=== PATIENT | female | born 1945 | race Caucasian/White ===

== ENCOUNTER 2016-12-04 13:12 | Emergency (ER) | payer MEDICARE ==
[~2016-12-04] VITALS: Ht 167.6 cm; Wt 62.0 kg
[~2016-12-04 13:12] MED LIST: ADIP37.55 PO; AUGM875T PO; BIOT7500 PO; BUPR-197 PO; CARV12.5 PO; FISHCAP; HYOS0.129 SL; LORA2TAB PO; OSPE1TAB PO; OXYB5TAB PO; OXYC1SOL5 PO; PEPC10TA PO; REST30CA PO; VITA100032 PO
[2016-12-04 13:16] VITALS: BP 122/82; PULSE 73; RESP 16; TEMP 98.8; O2SAT 96
[2016-12-04] MEDS ORDERED: RELEMIS INH (15:40)
[2016-12-04] MEDS ORDERED: PRED50 PO (15:40)
[2016-12-04] MEDS ORDERED: CARV12.5 PO (15:40)
[2016-12-04] MEDS ORDERED: AMOX875T PO (15:40)
[2016-12-04] MEDS ORDERED: VENTAER INH (15:40)
[2016-12-04] MEDS ORDERED: SODIUM CHLOR 0.9% 1000 ML INJ 1,000 ML IV ONE (15:45)
--- NOTE | 2016-12-04 16:08 | PD ---
HPI Chief Complaint: Cold / Flu Symptoms Time Seen by Provider: 15:26 Travel History International Travel<30 days: No Contact w/Intl Traveler<30days: No Traveled to known affect area: No History of Present Illness HPI This is a 71-year-old female who presents to the emergency department having had a cough, generalized weakness and shortness of breath it's been progressing over the past 3 days, moderate severity, constant, associated with decreased appetite and oral intake. 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 She went to an urgent care where she received antivirals, amoxicillin, prednisone and an inhaler. Her is concerned because she's been very lethargic and not getting out of bed. PFSH Past Medical History Cancer: No Cardiovascular Problems: No Diabetes: No Gastrointestinal Disorders: Yes (SPASM FREQUENTLY) Genitourinary: No Hepatitis: No Hiatal Hernia: No Hypertension: Yes Immune Disorder: No Musculoskeletal: Yes (R SHOULDER PAIN FROM INJURY. NECK PAIN, L ELEBOW PAIN) Neurologic: No Psychiatric: Yes Reproductive: No Respiratory: No Thyroid Disease: No Influenza Vaccination: Yes ?: Not LMP: Arielle- Past Surgical History Abdominal Surgery: Yes (COLON RESECTION, GASTRIC BYPASS 1990 WITH REVISION) AICD: No Body Medical Devices: CORNEA TRANSPLANT Eye Surgery: Yes (CORNEAL TRANSPLANT, BILATERAL CATARACT SURGERY) Genitourinary Surgery: Yes (BOTOX FOR LEAKING BLADDER, BLADDER LIFT) Gynecologic Surgery: Yes (HYSTERECTOMY) Joint Replacement: No Neurologic Surgery: Yes (LAMI 1983 L5/S1, EPIDURAL TO NECK) Pacemaker: No Other Surgery: Yes Social History Alcohol Use: No Tobacco Use: No Substance Use: No Allergies-Medications (Allergen,Severity, Reaction): Coded Allergies: Nonsteroidal Anti-Inflammatory Agts (Unverified Adverse Reaction, Severe, 12/04/16) PT ONLY HAS ONE KIDNEY Uncoded Allergies: IV CONTRAST DYE (Adverse Reaction, Severe, 03/17/16) PT ONLY HAS ONE KIDNEY Reported Meds & Prescriptions Reported Meds & Active Scripts Active Reported Prednisone 50 Mg Tab 50 Mg PO DAILY Relenza Inhalation Powder Blister (Zanamivir) 5 Mg/Blister Cap 10 Mg INH DAILY Two inhalations = 10 mg Amoxicillin 875 Mg Tab 875 Mg PO BID Coreg (Carvedilol) 12.5 Mg Tab 12.5 Mg PO BID Ventolin Hfa 18 GM Inh (Albuterol Sulfate) 90 Mcg/Act Aer 2 Puff INH Q6H PRN Review of Systems Except as stated in HPI: all other systems reviewed are Neg Physical Exam Narrative GENERAL: Uncomfortable appearing, no acute distress SKIN: Warm and dry. HEAD: Atraumatic. Normocephalic. EYES: Pupils equal and round. No injection or drainage. ENT: Dry mucous membranes. NECK: Trachea midline. CARDIOVASCULAR: Regular rate and rhythm. No murmur appreciated. RESPIRATORY: Clear to auscultation. Breath sounds equal bilaterally. GASTROINTESTINAL: Abdomen soft, non-tender, nondistended. MUSCULOSKELETAL: No obvious deformities. NEUROLOGICAL: Awake and alert. No obvious cranial nerve deficits. Moving all extremities. PSYCHIATRIC: Appropriate mood and affect; insight and judgment normal. Data Data Last Documented VS Vital Signs Date Time Temp Pulse Resp B/P Pulse Ox O2 Delivery O2 Flow Rate FiO2 12/04/16 15:34 96 Room Air 12/04/16 13:16 98.8 73 16 122/82 Orders Complete Blood Count With Diff (12/04/16 15:37) Comprehensive Metabolic Panel (12/04/16 15:37) Chest, Pa & Lat (12/04/16 ) ^ Insert Iv (12/04/16 15:37) Sodium Chlor 0.9% 1000 Ml Inj (Ns 1000 M (12/04/16 15:45) MDM Medical Decision Making Medical Screen Exam Complete: Yes Emergency Medical Condition: Yes Differential Diagnosis Bronchitis, pneumonia, COPD, viral syndrome, influenza Narrative Course This is a 71-year-old female who presents to the emergency department with malaise and cough. She is placed on a monitor and an IV was established. Labs were obtained. Patient will be hydrated. X-ray will be obtained to rule out pneumonia. I suspect patient has a viral syndrome and will be able to go home. Patient was signed out to Amada Posey MD Dec 04, 2016 16:08
[2016-12-04 16:22] LABS: AUTOMATED NEUTROPHIL # 5.5 TH/MM3 (1.8-7.7); BASOPHIL # 0.1 TH/MM3 (0-0.2); BASOPHIL % 2.1 % (0.0-2.0); EOSINOPHIL % 0.1 % (0.0-4.0); HEMATOCRIT 45.3 % (35.0-46.0); HEMO FLAGS DIFF FINAL; LYMPH % 8.9 % (9.0-44.0); LYMPHOCYTE # 0.6 TH/MM3 (1.0-4.8); MEAN CELL VOLUME 98.3 FL (80.0-100.0); MEAN CORPUSCULAR HGB CONC 32.6 % (32.0-36.0); MONO % 2.6 % (0.0-8.0); NEUT % 86.3 % (16.0-70.0); PLATELET COUNT 296 TH/MM3 (150-450); RED BLOOD COUNT 4.61 MIL/MM3 (4.00-5.30); RED CELL DISTRIBUTION WIDTH 14.2 % (11.6-17.2); WHITE BLOOD COUNT 6.4 TH/MM3 (4.0-11.0)
--- NOTE | 2016-12-04 16:22 | RADHPO ---
EXAM DATE/TIME: 12/04/2016 15:53 [facility] COMPARISON: No previous studies available for comparison. INDICATIONS: Short of breath. MEDICAL HISTORY: None. SURGICAL HISTORY: Breast augmentation ENCOUNTER: Initial ACUITY: 1 day PAIN SCORE: 0/10 LOCATION: Bilateral chest FINDINGS: There is minimal patchy air space disease in the right upper lobe. The left lung is clear. Heart an d pulmonary vascularity pattern are normal. Portion of bony skeleton visualized unremarkable. CONCLUSION: 1. Minimal air space disease in the right upper lobe. This could be an inflammatory process. 2. There is no congestive failure. Jordan Kaminski MD FACR on December 04, 2016 at 16:16 Board Certified Radiologist. This report was verified electronically.
[2016-12-04 16:29] LABS: CHLORIDE 103 MEQ/L (98-107); POTASSIUM 4.7 MEQ/L (3.5-5.1); SODIUM (NA) 141 MEQ/L (136-145)
[2016-12-04 16:29] LABS: BLOOD, URINE NEG (NEG); GLUCOSE,URINE NEG (NEG); KETONE, URINE 15 mg/dL (NEG); NITRITE,URINE NEG (NEG)
[2016-12-04 16:30] LABS: METHOD OF COLLECTION CLEAN CATCH; URINE COLOR YELLOW (YELLW/STRAW)
[2016-12-04 16:33] LABS: ANION GAP 9 MEQ/L (5-15); BICARBONATE 28.6 MEQ/L (21.0-32.0); BLOOD UREA NITROGEN 16 MG/DL (7-18)
[2016-12-04 16:34] LABS: COMMENT (UR) CULT NOT INDICATED; CULTURE IF INDICATED CULT NOT INDICATED
[2016-12-04 16:36] LABS: ALT (GPT) 33 U/L (10-53); AST (GOT) 70 U/L (15-37); GLOMERULAR FILTRATION RATE 44 ML/MIN (>89)
[2016-12-04 16:38] LABS: TOTAL BILIRUBIN ADULT 0.4 MG/DL (0.2-1.0)
[2016-12-04 16:39] LABS: ALKALINE PHOSPHATASE 60 U/L (45-117)
--- NOTE | 2016-12-04 17:24 | PD ---
Physical Exam Date Seen by Provider: Dec 04, 2016 Time Seen by Provider: 17:21 Narrative 71-year-old female had presented with weakness and shortness of breath. She was seen by Dr. Zaman and workup has been ordered. She was diagnosed with a respiratory infection 3 days ago and has been on anti-flu medicine, amoxicillin and prednisone. Her chest x-ray does show a right upper lobe infiltrate which may represent pneumonia. Her white count is normal. She does have some ketones in the urine I have encouraged to increase her fluids. SHe appears stable for discharge. Data Data Last Documented VS Vital Signs Date Time Temp Pulse Resp B/P Pulse Ox O2 Delivery O2 Flow Rate FiO2 12/04/16 15:34 96 Room Air 12/04/16 13:16 98.8 73 16 122/82 Orders Complete Blood Count With Diff (12/04/16 15:37) Comprehensive Metabolic Panel (12/04/16 15:37) Chest, Pa & Lat (12/04/16 ) ^ Insert Iv (12/04/16 15:37) Sodium Chlor 0.9% 1000 Ml Inj (Ns 1000 M (12/04/16 15:45) Urinalysis - C+S If Indicated (12/04/16 16:17) Labs Laboratory Tests Test 12/04/16 12/04/16 16:10 16:20 White Blood Count 6.4 TH/MM3 Red Blood Count 4.61 MIL/MM3 Hemoglobin 14.8 GM/DL Hematocrit 45.3 % Mean Corpuscular Volume 98.3 FL Mean Corpuscular Hemoglobin 32.0 PG Mean Corpuscular Hemoglobin 32.6 % Concent Red Cell Distribution Width 14.2 % Platelet Count 296 TH/MM3 Mean Platelet Volume 8.1 FL Neutrophils (%) (Auto) 86.3 % Lymphocytes (%) (Auto) 8.9 % Monocytes (%) (Auto) 2.6 % Eosinophils (%) (Auto) 0.1 % Basophils (%) (Auto) 2.1 % Neutrophils # (Auto) 5.5 TH/MM3 Lymphocytes # (Auto) 0.6 TH/MM3 Monocytes # (Auto) 0.2 TH/MM3 Eosinophils # (Auto) 0.0 TH/MM3 Basophils # (Auto) 0.1 TH/MM3 CBC Comment DIFF FINAL Differential Comment Sodium Level 141 MEQ/L Potassium Level 4.7 MEQ/L Chloride Level 103 MEQ/L Carbon Dioxide Level 28.6 MEQ/L Anion Gap 9 MEQ/L Blood Urea Nitrogen 16 MG/DL Creatinine 1.20 MG/DL Estimat Glomerular Filtration 44 ML/MIN Rate Random Glucose 98 MG/DL Calcium Level 8.7 MG/DL Total Bilirubin 0.4 MG/DL Aspartate Amino Transf 70 U/L (AST/SGOT) Alanine Aminotransferase 33 U/L (ALT/SGPT) Alkaline Phosphatase 60 U/L Total Protein 7.2 GM/DL Albumin 3.4 GM/DL Urine Collection Type CLEAN CATCH Urine Color YELLOW Urine Turbidity CLEAR Urine pH 6.0 Urine Specific [place] 1.015 Urine Protein NEG mg/dL Urine Glucose (UA) NEG mg/dL Urine Ketones 15 mg/dL Urine Occult Blood NEG Urine Nitrite NEG Urine Bilirubin NEG Urine Leukocyte Esterase NEG Urine WBC 3-5 /hpf Urine Squamous Epithelial 6-8 /hpf Cells Urine Yeast (Budding) FEW Microscopic Urinalysis Comment CULT NOT INDICATED MDM Medical Record Reviewed: No Supervised Visit with FRAN: No Differential Diagnosis Differential includes viral syndrome pneumonia Narrative Course Patient does have pneumonia because the white count appears to be viral and the patient does not appear toxic at this time. She has been on antibiotics for 3 days. I have encouraged her to continue these antibiotics and penicillin. She is to be off work for a week Diagnosis Primary Impression: Pneumonia Qualified Code: J18.1 - Pneumonia of right upper lobe due to infectious organism Departure Forms: Tests/Procedures, Work Release Enter return to work date: Dec 11, 2016 Additional Instruction: Continue current medications Disposition: 01 DISCHARGE HOME Condition: Stable Ramses Ang MD Dec 04, 2016 17:24
[2016-12-04 17:39] VITALS: BP 128/80
== END 2016-12-04 18:06 | disposition home or self-care (01) ==
LOC: PHED 13:12
DX: J18.9 Pneumonia, unspecified organism (principal); I10 Essential (primary) hypertension
CPT/HCPCS: 71020; 80053; 81001; 85025; 96360; 99285; J7030